=== PATIENT | male | born 1960 | race Caucasian/White ===

== ENCOUNTER 2021-04-06 13:45 | Inpatient (IN) | payer MEDICAID ==
[~2021-04-06] VITALS: Ht 182.9 cm; Wt 70.3 kg
[2021-04-06] VITALS (12 sets, daily range): BP systolic 142–220; BP diastolic 73–115
[2021-04-06] MEDS ORDERED: iohexol 300mg/ml 100ml inj. ONE (13:52)
[2021-04-06 14:03] LABS: BASOPHILS % (AUTO) 0.5 % (0-1); EOSINOPHILS # (AUTO) 0.1 X10'3 (0-0.9); EOSINOPHILS % (AUTO) 1.5 % (0-6); HEMOGLOBIN 14.3 g/dl (14.0-17.9); LYMPHOCYTES # (AUTO) 2.1 X10'3 (1.1-4.8); MEAN CORPUSCULAR HGB CONC 33.1 g/dL (33.0-36.5); MEAN CORPUSCULAR VOLUME 99.6 FL (78-98); MEAN PLATELET VOLUME 8.1 FL (7.4-10.4); MONOCYTES # (AUTO) 0.8 X10'3 (0-0.9); MONOCYTES % (AUTO) 8.5 % (2-12); NEUTROPHILS # (AUTO) 5.9 X10'3 (1.8-7.7); NEUTROPHILS % (AUTO) 65.5 % (42-75); PLATELET COUNT 492 X10'3 (140-440); RED BLOOD COUNT 4.32 X10'6 (4.70-6.10); RED CELL DISTRIBUTION WIDTH 13.5 % (11.5-14.5); WHITE BLOOD COUNT 8.9 X10'3 (4.5-11.0)
[2021-04-06 14:16] LABS: PARTIAL THROMBOPLASTIN TIME 23 SECONDS (22-32)
[2021-04-06 14:20] LABS: ALANINE AMINOTRANSFERASE 29 U/L (12-78); ALBUMIN 3.5 G/DL (3.4-5.0); ALKALINE PHOSPHATASE 46 IU/L (46-116); ANION GAP 9 (8-16); ASPARTATE AMINO TRANSFERASE 25 U/L (10-37); BILIRUBIN,TOTAL 0.5 MG/DL (0.1-1.0); BLOOD UREA NITROGEN 10 MG/DL (7-18); BUN/CREATININE RATIO 12.2 (5.4-32.0); CALCIUM 8.6 MG/DL (8.5-10.1); CHLORIDE 107 MMOL/L (99-107); CREATININE 0.82 MG/DL (0.60-1.10); GLUCOSE 117 MG/DL (70-104); POTASSIUM 3.8 MMOL/L (3.5-5.1); SODIUM 142 MMOL/L (135-145); TOTAL CARBON DIOXIDE 26.3 MMOL/L (24-32); eGFR > 90 ML/MIN
[2021-04-06 14:22] LABS: ETHANOL < 0.010 GM/DL (0.0-0.010)
[2021-04-06] MEDS ORDERED: ceFAZolin/D5W- 1GM premix 50 ML IV ONE (14:25)
[2021-04-06] MEDS ORDERED: normal saline 1000ML IV soln IVB ONE (14:25)
[2021-04-06] MEDS ORDERED: TETanus/Pertussis (Acell)/Diphther VAC/PF (Tdap-Adult) 0.5ml syringe IMVAC ONE (14:25)
[2021-04-06] MEDS ORDERED: ceFAZolin/D5W- 1GM premix 50 ML IV SCH (14:25)
[2021-04-06] MEDS ORDERED: morphine 4 MG/ML inj SYRINge IV ONE (14:25)
[2021-04-06 14:47] LABS: PLATELET ESTIMATE INCREASED; TOTAL CELLS COUNTED 100
[2021-04-06 14:48] LABS: MAGNESIUM 2.1 MG/DL (1.5-2.4)
[2021-04-06] MEDS ORDERED: acetaminophen 325mg tablet PO PRN ×2 (14:55)
[2021-04-06] MEDS ORDERED: ondansetron/PF 4mg/2ml inj IV PRN ×3 (14:55→19:05)
[2021-04-06] MEDS ORDERED: morphine 4 MG/ML inj SYRINge IV PRN ×2 (14:55→18:05)
[2021-04-06] MEDS ORDERED: LIDOcaine 2% 10ml TOPICAL JELLY (Urojet) TP ONE (14:55)
[2021-04-06] MEDS ORDERED: magnesium hydroxide 30ml (MOM) UD suspension PO PRN (14:55)
[2021-04-06] MEDS ORDERED: morphine 2 MG/ML inj. syringe IV PRN ×2 (14:55→18:05)
[2021-04-06] MEDS: normal saline 1000ml 1,000 ML IV SCH ×2 (15:16→21:11)
[2021-04-06] MEDS ORDERED: AMLO5TAB4 PO (15:35)
[2021-04-06 16:50] LABS: CLARITY,URINE CLEAR (Clear); COLOR,URINE STRAW (Yellow); GLUCOSE, URINE NEGATIVE (Neg); KETONES,URINE NEGATIVE (Neg); LEUKOCYTE ESTERASE ,URINE NEGATIVE (Neg); NITRITES, URINE NEGATIVE (Neg); OCCULT BLOOD,URINE NEGATIVE (Neg); PROTEIN,URINE NEGATIVE (Neg); URINE AMPHETAMINE SCREEN NEGATIVE (Neg); URINE BARBITUATE SCREEN NEGATIVE (Neg); URINE BENZODIAZEPINES SCREEN NEGATIVE (Neg); URINE CANNABINOID SCREEN POSITIVE (Neg); URINE COCAINE SCREEN NEGATIVE (Neg); URINE METHADONE SCREEN NEGATIVE (Neg); URINE OPIATE SCREEN POSITIVE (Neg); URINE PHENCYCLIDINE SCREEN NEGATIVE (Neg); UROBILINOGEN,URINE 0.2 E.U/dL (0.2-1.0)
[2021-04-06] MEDS ORDERED: HYDROmorphone 1 mg/ml syringe IV ONE (16:50)
[2021-04-06 16:56] LABS: UA COLLECTION TYPE VOIDED
[2021-04-06] MEDS ORDERED: BUPIVAcaine 0.5% inj/PF 30 ML ONE (18:01)
[2021-04-06] MEDS ORDERED: labetalol 20mg/4ml (5mg/ml) syringe IV PRN (18:05)
[2021-04-06] MEDS ORDERED: acetaminophen 1,000mg/100ml IV 100 ML IV PRN (18:05)
[2021-04-06] MEDS ORDERED: meperidine/PF 25mg/ml syringe IV PRN ×2 (18:05)
[2021-04-06] MEDS ORDERED: ringers solution, lacted 1,000 ML IV SCH (18:05)
[2021-04-06] MEDS ORDERED: hydrALAZINE 20mg/ml inj. IV PRN (18:05)
[2021-04-06] MEDS ORDERED: proCHLORperazine 10 MG/2 ml inj IV PRN (18:05)
[2021-04-06] MEDS ORDERED: AMLO10TA48 PO (18:09)
[2021-04-06] MEDS ORDERED: sevoflurane 250ml liquid IH ONE (18:10)
[2021-04-06] MEDS ORDERED: LIDOcaine 1% (10mg/ml) 2ml vial ONE (18:11)
[2021-04-06] MEDS ORDERED: fentaNYL /PF 50mcg/ml 5ml ampule ONE (18:15)
[2021-04-06] MEDS ORDERED: LIDOcaine 2% 5ml jelly ONE (18:15)
[2021-04-06] MEDS ORDERED: midazolam 1 mg/ML 2ml injection ONE (18:15)
[2021-04-06] MEDS ORDERED: 0.9 % SODIUM CHLORIDE 10 ML VIAL ONE (18:58)
[2021-04-06] MEDS ORDERED: propofol inj 20 ML IV ONE (18:58)
[2021-04-06] MEDS ORDERED: ePHEDrine 50MG/ML INJ. ONE (18:58)
[2021-04-06] MEDS ORDERED: LIDOcaine 2% (20mg/ml) 5ml vial ONE (18:58)
[2021-04-06] MEDS ORDERED: rocuronium 10mg/ml inj IV ONE (18:58)
[2021-04-06] MEDS ORDERED: ondansetron/PF 4mg/2ml inj ONE (18:58)
[2021-04-06] MEDS ORDERED: dexamethasone sod phosphate 4mg/ml inj. ONE (18:58)
[2021-04-06] MEDS ORDERED: ceFAZolin 1000mg inj ONE ×2 (18:58)
[2021-04-06] MEDS ORDERED: HYDROcodone/acetaminophen 10/325mg tab PO PRN (19:05)
[2021-04-06] MEDS ORDERED: neostigmine methylsulfate 1 MG/ML 10ml vial ONE (19:07)
[2021-04-06] MEDS ORDERED: glycopyrrolate 0.2mg/ml inj ONE (19:07)
--- NOTE | 2021-04-06 19:20 | NUR ---
Received from OR via [facility], accompanied by Anesthesiologist and report given by Anesthesiologist. PATIENT WAKING UP, C/O PAIN SEE EMAR, V/S WNL, SCD ON, 18G TO RUE AND LUE 14G LUE, DRESSING TO ABDOMEN RUQ W/ GREG CDI. HTN SEE EMAR.
[2021-04-06] MEDS: meperidine/PF 25mg/ml syringe IV PRN ×2 (19:23→19:44)
--- NOTE | 2021-04-06 20:00 | NUR ---
PATIENT SLEEPY BUT ORIENTED X4, C/O INTERMITTENT PAIN, V/S WNL, SCD ON, 18G TO RUE AND LUE 14G LUE, DRESSING TO ABDOMEN RUQ W/ GREG CDI. HTN RESOLVING. PATIENT TAKEN TO 344B WITH ALL BELONGINGS AND HOOKED UP TO MONITORS IN ROOM AND REPORT GIVEN TO AM RN.
[2021-04-06] MEDS ORDERED: morphine 2 MG/ML inj. syringe IV ONE (21:10)
[2021-04-06] MEDS: amLODIPine 5mg tablet PO SCH (23:05)
[2021-04-06] MEDS: HYDROmorphone 1 mg/ml syringe IV PRN (23:08)
[2021-04-06] MEDS: ceFAZolin/D5W- 1GM premix 50 ML IV SCH (23:57)
[2021-04-07] VITALS: BP 145/70
--- NOTE | 2021-04-07 02:15 | NUR ---
PT STILL UNABLE TO VOID AFTER 6 HRS. BLADDER SCAN = > 490. NOTIFIED DR. OLEARY AND RECEIVED AN ORDER TO PUT COKNLIN PROTOCOL BACK IN. 16FR INSERTED.
[2021-04-07] MEDS ORDERED: LIDOcaine 2% 10ml TOPICAL JELLY (Urojet) TP ONE (02:25)
[2021-04-07] MEDS: HYDROmorphone 1 mg/ml syringe IV PRN ×3 (02:41→21:15)
[2021-04-07 04:00] VITALS: BP 142/77
[2021-04-07 05:53] LABS: HEMATOCRIT 43.9 % (42.0-52.0); HEMOGLOBIN 14.7 g/dl (14.0-17.9); MEAN CORPUSCULAR HEMOGLOBIN 33.2 PG (27.0-31.0); MEAN CORPUSCULAR HGB CONC 33.4 g/dL (33.0-36.5); MEAN CORPUSCULAR VOLUME 99.4 FL (78-98); MEAN PLATELET VOLUME 8.4 FL (7.4-10.4); PLATELET COUNT 456 X10'3 (140-440); RED BLOOD COUNT 4.41 X10'6 (4.70-6.10); RED CELL DISTRIBUTION WIDTH 13.9 % (11.5-14.5)
[2021-04-07 06:16] LABS: ALANINE AMINOTRANSFERASE 28 U/L (12-78); ALBUMIN 3.1 G/DL (3.4-5.0); ALBUMIN/GLOBULIN RATIO 0.9 (1.1-1.5); ALKALINE PHOSPHATASE 44 IU/L (46-116); ANION GAP 11 (8-16); ASPARTATE AMINO TRANSFERASE 28 U/L (10-37); BILIRUBIN,TOTAL 0.4 MG/DL (0.1-1.0); BLOOD UREA NITROGEN 7 MG/DL (7-18); BUN/CREATININE RATIO 10.4 (5.4-32.0); CALCIUM 7.9 MG/DL (8.5-10.1); CHLORIDE 106 MMOL/L (99-107); CREATININE 0.67 MG/DL (0.60-1.10); GLUCOSE 130 MG/DL (70-104); POTASSIUM 4.4 MMOL/L (3.5-5.1); SODIUM 143 MMOL/L (135-145); TOTAL CARBON DIOXIDE 26.5 MMOL/L (24-32); TOTAL PROTEIN 6.5 G/DL (6.4-8.2); eGFR > 90 ML/MIN
--- NOTE | 2021-04-07 06:55 | NUR ---
Problems reprioritized. Patient report given, questions answered & plan of care reviewed with FLOR. Addendum: 04/07/21 at 0656 by Silverio Anthony RN Amended: Links added.
[2021-04-07 07:00] VITALS: BP 157/76
[2021-04-07] MEDS: normal saline 1000ml 1,000 ML IV SCH ×3 (07:35→16:51)
[2021-04-07] MEDS: pantoprazole 40 MG vial IV SCH (07:35)
[2021-04-07] MEDS: ceFAZolin/D5W- 1GM premix 50 ML IV SCH (09:27)
[2021-04-07 09:35] LABS: HEMATOCRIT 43.1 % (42.0-52.0); HEMOGLOBIN 14.3 g/dl (14.0-17.9); MEAN CORPUSCULAR HGB CONC 33.2 g/dL (33.0-36.5); MEAN CORPUSCULAR VOLUME 99.3 FL (78-98); MEAN PLATELET VOLUME 8.3 FL (7.4-10.4); PLATELET COUNT 431 X10'3 (140-440); RED BLOOD COUNT 4.34 X10'6 (4.70-6.10); RED CELL DISTRIBUTION WIDTH 13.8 % (11.5-14.5); WHITE BLOOD COUNT 12.9 X10'3 (4.5-11.0)
[2021-04-07] MEDS ORDERED: ketorolac trometh. 30mg/ml inj. IV ONE (10:10)
[2021-04-07 12:29] VITALS: BP 116/89
[2021-04-07 15:21] LABS: BASOPHILS % (AUTO) 0.3 % (0-1); EOSINOPHILS % (AUTO) 0.1 % (0-6); LYMPHOCYTES # (AUTO) 1.7 X10'3 (1.1-4.8); LYMPHOCYTES % (AUTO) 9.9 % (21-51); MEAN CORPUSCULAR HEMOGLOBIN 33.2 PG (27.0-31.0); MEAN CORPUSCULAR HGB CONC 33.3 g/dL (33.0-36.5); MEAN CORPUSCULAR VOLUME 99.5 FL (78-98); MEAN PLATELET VOLUME 8.5 FL (7.4-10.4); MONOCYTES # (AUTO) 1.1 X10'3 (0-0.9); MONOCYTES % (AUTO) 6.8 % (2-12); NEUTROPHILS # (AUTO) 13.9 X10'3 (1.8-7.7); NEUTROPHILS % (AUTO) 82.9 % (42-75); PLATELET COUNT 400 X10'3 (140-440); RED BLOOD COUNT 4.53 X10'6 (4.70-6.10); RED CELL DISTRIBUTION WIDTH 13.9 % (11.5-14.5); WHITE BLOOD COUNT 16.7 X10'3 (4.5-11.0)
[2021-04-07 18:00] VITALS: BP 134/86
--- NOTE | 2021-04-07 18:33 | NUR ---
Problems reprioritized. Patient report given, questions answered & plan of care reviewed with CHELI Rudd.
--- NOTE | 2021-04-07 18:35 | NUR ---
Patient in room [facility]. I have received report from CHELI Cui and had the opportunity to ask questions and assume patient care.
[2021-04-07 20:55] LABS: HEMATOCRIT 45.4 % (42.0-52.0); HEMOGLOBIN 15.1 g/dl (14.0-17.9); MEAN CORPUSCULAR HEMOGLOBIN 33.1 PG (27.0-31.0); MEAN CORPUSCULAR HGB CONC 33.2 g/dL (33.0-36.5); MEAN CORPUSCULAR VOLUME 99.8 FL (78-98); MEAN PLATELET VOLUME 8.4 FL (7.4-10.4); PLATELET COUNT 436 X10'3 (140-440); RED BLOOD COUNT 4.55 X10'6 (4.70-6.10); RED CELL DISTRIBUTION WIDTH 14.1 % (11.5-14.5); WHITE BLOOD COUNT 14.3 X10'3 (4.5-11.0)
[2021-04-07] MEDS: amLODIPine 5mg tablet PO SCH (21:00)
[2021-04-07] MEDS: piperacillin/tazo 4.5gm/100ml 100 ML IV SCH (21:01)
[2021-04-07] MEDS: oxyCODONE IR 5mg (immed. release) tablet PO PRN (21:05)
[2021-04-08] VITALS: BP 134/76
[2021-04-08] MEDS: normal saline 1000ml 1,000 ML IV SCH ×3 (03:15→17:22)
[2021-04-08 03:25] LABS: HEMATOCRIT 35.4 % (42.0-52.0); HEMOGLOBIN 11.9 g/dl (14.0-17.9); MEAN CORPUSCULAR HGB CONC 33.5 g/dL (33.0-36.5); MEAN CORPUSCULAR VOLUME 98.5 FL (78-98); MEAN PLATELET VOLUME 8.1 FL (7.4-10.4); PLATELET COUNT 327 X10'3 (140-440); RED CELL DISTRIBUTION WIDTH 13.6 % (11.5-14.5); WHITE BLOOD COUNT 9.8 X10'3 (4.5-11.0)
[2021-04-08] MEDS: HYDROmorphone 1 mg/ml syringe IV PRN ×3 (04:33→19:03)
--- NOTE | 2021-04-08 06:24 | NUR ---
Problems reprioritized. Patient report given, questions answered & plan of care reviewed with CHELI Cui.
[2021-04-08 07:20] VITALS: BP 175/88
[2021-04-08] MEDS: pantoprazole 40 MG vial IV SCH (07:28)
[2021-04-08] MEDS: piperacillin/tazo 4.5gm/100ml 100 ML IV SCH ×2 (07:28→17:23)
[2021-04-08 10:12] LABS: HEMATOCRIT 46.2 % (42.0-52.0); HEMOGLOBIN 15.1 g/dl (14.0-17.9); MEAN CORPUSCULAR HEMOGLOBIN 32.8 PG (27.0-31.0); MEAN CORPUSCULAR HGB CONC 32.7 g/dL (33.0-36.5); MEAN CORPUSCULAR VOLUME 100.2 FL (78-98); MEAN PLATELET VOLUME 8.9 FL (7.4-10.4); PLATELET COUNT 406 X10'3 (140-440); RED BLOOD COUNT 4.61 X10'6 (4.70-6.10); RED CELL DISTRIBUTION WIDTH 14.1 % (11.5-14.5); WHITE BLOOD COUNT 12.3 X10'3 (4.5-11.0)
[2021-04-08 12:00] VITALS: BP 162/71
[2021-04-08 15:53] LABS: HEMATOCRIT 42.4 % (42.0-52.0); HEMOGLOBIN 14.1 g/dl (14.0-17.9); MEAN CORPUSCULAR HGB CONC 33.3 g/dL (33.0-36.5); MEAN CORPUSCULAR VOLUME 99.1 FL (78-98); MEAN PLATELET VOLUME 8.9 FL (7.4-10.4); PLATELET COUNT 388 X10'3 (140-440); RED BLOOD COUNT 4.28 X10'6 (4.70-6.10); WHITE BLOOD COUNT 11.7 X10'3 (4.5-11.0)
--- NOTE | 2021-04-08 18:32 | NUR ---
Problems reprioritized. Patient report given, questions answered & plan of care reviewed with Aliza RN.
[2021-04-08 19:00] VITALS: BP 153/76
[2021-04-08] MEDS: lactobacillus rhamnosus 10,000 MMU CELLS/CAPSULE PO SCH (21:03)
[2021-04-08] MEDS: amLODIPine 5mg tablet PO SCH (21:05)
[2021-04-08] MEDS: oxyCODONE IR 5mg (immed. release) tablet PO PRN (21:22)
[2021-04-08 21:38] LABS: HEMATOCRIT 42.4 % (42.0-52.0); MEAN CORPUSCULAR HEMOGLOBIN 32.8 PG (27.0-31.0); MEAN CORPUSCULAR HGB CONC 33.1 g/dL (33.0-36.5); MEAN CORPUSCULAR VOLUME 99.1 FL (78-98); MEAN PLATELET VOLUME 8.4 FL (7.4-10.4); PLATELET COUNT 384 X10'3 (140-440); RED BLOOD COUNT 4.28 X10'6 (4.70-6.10); RED CELL DISTRIBUTION WIDTH 13.5 % (11.5-14.5); WHITE BLOOD COUNT 10.4 X10'3 (4.5-11.0)
[2021-04-09] VITALS: BP 150/102
[2021-04-09] MEDS: HYDROmorphone 1 mg/ml syringe IV PRN (00:31)
[2021-04-09] MEDS: piperacillin/tazo 4.5gm/100ml 100 ML IV SCH ×3 (00:31→15:50)
[2021-04-09] MEDS: normal saline 1000ml 1,000 ML IV SCH ×3 (02:56→20:57)
[2021-04-09] MEDS: oxyCODONE IR 5mg (immed. release) tablet PO PRN ×3 (03:37→20:59)
[2021-04-09 07:00] VITALS: BP 155/81
[2021-04-09] MEDS: pantoprazole 40 MG vial IV SCH (07:48)
[2021-04-09] MEDS: lactobacillus rhamnosus 10,000 MMU CELLS/CAPSULE PO SCH ×2 (07:48→20:55)
--- NOTE | 2021-04-09 12:32 | NUR ---
Carr catheter DC'd. No complications.
[2021-04-09 12:37] VITALS: BP 156/73
--- NOTE | 2021-04-09 12:42 | NUR ---
PAGER ID: [phone] MESSAGE: [id number] Neftaly Gonsales: patient has no further labs ordered. would you like to continue any labs? thanks! [phone] [id number]
--- NOTE | 2021-04-09 14:00 | NUR ---
patient voided without difficulty in urinal.
--- NOTE | 2021-04-09 15:55 | NUR ---
PAGER ID: [phone] MESSAGE: [phone] Ilda, O: patient requesting stool softener. thanks! [phone]
[2021-04-09 18:00] VITALS: BP 174/90
--- NOTE | 2021-04-09 18:45 | NUR ---
Patient in room [facility]. I have received report from FLOR BOWER and had the opportunity to ask questions and assume patient care.
[2021-04-09] MEDS: amLODIPine 5mg tablet PO SCH (20:55)
[2021-04-10] VITALS: BP 158/85
[2021-04-10] MEDS: piperacillin/tazo 4.5gm/100ml 100 ML IV SCH ×3 (00:13→16:00)
[2021-04-10] MEDS: normal saline 1000ml 1,000 ML IV SCH (02:55)
--- NOTE | 2021-04-10 06:31 | NUR ---
Problems reprioritized. Patient report given, questions answered & plan of care reviewed with KERMIT BOWER.
--- NOTE | 2021-04-10 06:35 | NUR ---
Patient in room [facility]. I have received report from CHELI Velarde and had the opportunity to ask questions and assume patient care.
[2021-04-10 07:00] VITALS: BP 135/72
[2021-04-10 07:21] LABS: BASOPHILS # (AUTO) 0.1 X10'3 (0-0.2); BASOPHILS % (AUTO) 0.7 % (0-1); EOSINOPHILS # (AUTO) 0.4 X10'3 (0-0.9); EOSINOPHILS % (AUTO) 4.8 % (0-6); HEMATOCRIT 41.1 % (42.0-52.0); HEMOGLOBIN 13.9 g/dl (14.0-17.9); LYMPHOCYTES # (AUTO) 1.4 X10'3 (1.1-4.8); LYMPHOCYTES % (AUTO) 16.5 % (21-51); MEAN CORPUSCULAR HGB CONC 33.9 g/dL (33.0-36.5); MEAN CORPUSCULAR VOLUME 97.5 FL (78-98); MEAN PLATELET VOLUME 8.6 FL (7.4-10.4); MONOCYTES # (AUTO) 0.8 X10'3 (0-0.9); NEUTROPHILS # (AUTO) 5.9 X10'3 (1.8-7.7); PLATELET COUNT 393 X10'3 (140-440); RED BLOOD COUNT 4.22 X10'6 (4.70-6.10); RED CELL DISTRIBUTION WIDTH 13.7 % (11.5-14.5); WHITE BLOOD COUNT 8.6 X10'3 (4.5-11.0)
[2021-04-10] MEDS: lactobacillus rhamnosus 10,000 MMU CELLS/CAPSULE PO SCH (07:37)
[2021-04-10 07:38] LABS: ALBUMIN 2.6 G/DL (3.4-5.0); ANION GAP 7 (8-16); BLOOD UREA NITROGEN 5 MG/DL (7-18); BUN/CREATININE RATIO 6.7 (5.4-32.0); CALCIUM 7.8 MG/DL (8.5-10.1); CHLORIDE 107 MMOL/L (99-107); CREATININE 0.75 MG/DL (0.60-1.10); GLUCOSE 95 MG/DL (70-104); POTASSIUM 3.8 MMOL/L (3.5-5.1); SODIUM 141 MMOL/L (135-145); TOTAL CARBON DIOXIDE 27.5 MMOL/L (24-32); eGFR > 90 ML/MIN
[2021-04-10] MEDS: oxyCODONE IR 5mg (immed. release) tablet PO PRN ×2 (07:44→15:36)
[2021-04-10] MEDS ORDERED: docusate sod 100mg capsule PO SCH (08:00)
[2021-04-10] MEDS ORDERED: pantoprazole 40mg Tablet.DR PO SCH (08:00)
[2021-04-10] MEDS ORDERED: HYDR-3965 PO (09:49)
[2021-04-10] MEDS ORDERED: AMOX-422 PO (09:49)
[2021-04-10 11:00] VITALS: BP 113/60
--- NOTE | 2021-04-10 16:35 | NUR ---
Pt discharged to home at 1625, with all belongings, in private vehicle. Discharge instructions and medications reviewed. Pt instructed to follow up with Dr Gutierrez on April 15 around 1100. GREG navarro DC'jeremiah, pt tolerated well. Education provided to pt regarding signs/symptoms of infection with instructions to notify Dr Gutierrez's office with any concerns. Physical prescription for pain medications provided to pt with instructions to take to pharmacy of choice to fill. Nora to be removed at follow up appointment. [facility]
== END 2021-04-10 16:41 | disposition home or self-care (01) | DRG 229 ==
LOC: ER 13:46 → EDBD 13:46 → ED HOLD 14:51 → ICU 2S 19:12 → SUR 3N 20:05
PROVIDERS: ADMIT Surgery Surgical Critical Care; ATTEND Surgery Surgical Critical Care
PROC: 0FC04ZZ Extirpation of Matter from Liver, Percutaneous Endoscopic Approach (ICD-10-PCS; principal; 2021-04-06 18:10)
DX: T18.8XXA Foreign body in other parts of alimentary tract, initial encounter (principal); S36.118A Other injury of liver, initial encounter; F12.90 Cannabis use, unspecified, uncomplicated; I10 Essential (primary) hypertension; Z20.822 Contact with and (suspected) exposure to COVID-19; X58.XXXA Exposure to other specified factors, initial encounter; Z72.0 Tobacco use; Y93.89 Activity, other specified; Y92.89 Other specified places as the place of occurrence of the external cause; Y99.8 Other external cause status
CPT/HCPCS: 36415; 74174; 80048; 80053; 80305; 80320; 81003; 83735; 85007; 85025; 85027; 85610; 85730; 86885; 86900; 86901; 86920; 87081; 87635; 90471; 90715; 96374; 96375; 99291; A4215; A4618; A6402; A7000; C1758; C9113; C9803; G0378; J0131; J0360; J0690; J1100; J1170; J1885; J2001; J2175; J2250; J2270; J2405; J2543; J2704; J2710; J3010; J3490; J7030; J7120; Q9967

== ENCOUNTER 2021-08-24 16:51 | Emergency (ER) | payer MEDICAID ==
[~2021-08-24] VITALS: Ht 182.9 cm; Wt 65.9 kg
[~2021-08-24 16:51] MED LIST: AMLO10TA48 PO
[2021-08-24] MEDS ORDERED: morphine 2 MG/ML inj. syringe IV ONE (18:15)
[2021-08-24] MEDS ORDERED: ondansetron/PF 4mg/2ml inj IV ONE (18:15)
[2021-08-24 18:23] LABS: BASOPHILS % (AUTO) 0.3 % (0-1); EOSINOPHILS # (AUTO) 0.1 X10'3 (0-0.9); EOSINOPHILS % (AUTO) 0.8 % (0-6); HEMATOCRIT 41.7 % (42.0-52.0); HEMOGLOBIN 14.2 g/dl (14.0-17.9); LYMPHOCYTES # (AUTO) 1.1 X10'3 (1.1-4.8); MEAN CORPUSCULAR HEMOGLOBIN 32.6 PG (27.0-31.0); MEAN CORPUSCULAR HGB CONC 34.1 g/dL (33.0-36.5); MEAN CORPUSCULAR VOLUME 95.4 FL (78-98); MEAN PLATELET VOLUME 8.1 FL (7.4-10.4); MONOCYTES # (AUTO) 0.5 X10'3 (0-0.9); MONOCYTES % (AUTO) 4.5 % (2-12); NEUTROPHILS # (AUTO) 9.1 X10'3 (1.8-7.7); NEUTROPHILS % (AUTO) 84.4 % (42-75); PLATELET COUNT 436 X10'3 (140-440); RED BLOOD COUNT 4.37 X10'6 (4.70-6.10); WHITE BLOOD COUNT 10.8 X10'3 (4.5-11.0)
[2021-08-24] MEDS ORDERED: iohexol 300mg/ml 100ml inj. ONE (18:23)
[2021-08-24 18:42] LABS: ALANINE AMINOTRANSFERASE 22 U/L (12-78); ALBUMIN 3.4 G/DL (3.4-5.0); ALKALINE PHOSPHATASE 57 IU/L (46-116); ANION GAP 8 (8-16); ASPARTATE AMINO TRANSFERASE 18 U/L (10-37); BILIRUBIN,TOTAL 0.7 MG/DL (0.1-1.0); BLOOD UREA NITROGEN 12 MG/DL (7-18); BUN/CREATININE RATIO 14.3 (5.4-32.0); CALCIUM 8.5 MG/DL (8.5-10.1); CHLORIDE 101 MMOL/L (99-107); CREATININE 0.84 MG/DL (0.60-1.10); GLUCOSE 113 MG/DL (70-104); POTASSIUM 3.9 MMOL/L (3.5-5.1); SODIUM 138 MMOL/L (135-145); TOTAL CARBON DIOXIDE 29.1 MMOL/L (24-32); TOTAL PROTEIN 6.9 G/DL (6.4-8.2); eGFR > 90 ML/MIN
--- NOTE | 2021-08-24 19:37 | NUR ---
PT ROOMED IN BED 1. US TECH AT BEDSIDE.
[2021-08-24] MEDS ORDERED: ketorolac tromethamine 15mg/ml inj. IV ONE (19:55)
[2021-08-24] MEDS ORDERED: diazepam inj 5 MG/ML inj. IV ONE (19:55)
[2021-08-24] MEDS ORDERED: ketorolac trometh. 30mg/ml inj. IV ONE (20:00)
[2021-08-24] MEDS ORDERED: LEVO500T90 PO (20:24)
[2021-08-24] MEDS ORDERED: DOXYCYCLINE 100MG CAPSULE PO STA (20:25)
[2021-08-24] MEDS ORDERED: DIAZ2TAB PO (20:56)
[2021-08-24] MEDS ORDERED: NAPR-56 PO (20:56)
[2021-08-24 22:22] VITALS: BP 194/108
== END 2021-08-24 22:23 | disposition home or self-care (01) ==
LOC: ER 16:52
DX: R10.33 Periumbilical pain (principal); R10.31 Right lower quadrant pain; I10 Essential (primary) hypertension; Z72.89 Other problems related to lifestyle; Z91.013 Allergy to seafood; Z79.2 Long term (current) use of antibiotics; Z79.899 Other long term (current) drug therapy
CPT/HCPCS: 36415; 74177; 76870; 80053; 85025; 93976; 96374; 96375; 99285; J1885; J2270; J2405; J3360; Q9967; 96376